=== PATIENT | male | born 2000 | race Caucasian/White ===

== ENCOUNTER 2025-06-16 20:08 | Outpatient (OUT) | payer OTHER, SELFPAY ==
--- OUTSIDE RECORDS SUMMARY | 2025-05-14 11:45 | XMS_ITS ---
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 * Medical History: Objective: * Vitals: Assessment: Plan: * Treatment: * Billing Information: * Visit Code: * Procedure Codes: * Electronic signature of Nate Hendrickson MD on 06/16/2025 at 08:11 PM EDT Sign off status: Pending * Provider: Luis Hendrickson MD Date: 05/14/2025 Generated for Printi lucy/Geronimo/eTransmitting on: 06/16/2025 08:11 PM EDT
--- OUTSIDE RECORDS SUMMARY | 2025-06-16 20:11 | XMS_ITS | Clinical Summary ---
Author Organization [employer] [facility] Address [id number] [place] [address] Care Team Providers Care Regional Education Coordinator Name Role Phone Unavailable Primary Care Provider Unavailabl e Allergies No known active allergies Medications No known medications Social History Tobacco Use Types Packs/Day Years Used Date Smoking Tobacco: Never Assessed Hunger Screening Answer Date Recorded Within the past 12 months we worried whether our food would run out before we got money to buy more. Sometimes True 025 Within the past 12 months th e food we bought just didn't last and we didn't have money to get more. Sometimes True 12/07/2024 Sex and Gender Information Value Date Recorded Sex Assigned at Not on file Legal Sex Male 2:09 PM EST Gender Identity Not on file Sexual Orientation Not on file Last Filed Vital Signs Vital Sign Reading Time Taken Comments Blood Pressure 174/95 12/07/2024 5:29 PM EST Pulse 90 12/07/2024 2:32 PM EST Temperature 37.2 C (99 F) 12/07/2024 2:32 PM EST Respiratory Rate 18 12/07/2024 5:29 PM EST Oxygen Saturation 98% 12/07/2024 2:32 PM EST Inhaled Oxygen Concentration - - Weight 117.9 kg (260 lb) 12/07/2024 2:32 PM EST Height 180.3 cm (5' 11 ) 12/07/2024 2:32 PM EST Body Mass Index 36.26 12/07/2024 2:32 PM EST Plan of Treatment Health Maintenance Due Date Last Done Comments Depression Screening 2014 Tobacco Screening 2014 Adult BMI Follow Up Plan 2020 DTaP,Tdap and Td Vaccines (1 - Tdap) 2021 Influenza Vaccine 06/30/2025 Adult BMI Screening 12/07/2025 12/07/2024 Medical Devices Not on file Insurance [employer]
--- OUTSIDE RECORDS SUMMARY | 2025-06-16 20:11 | XMS_ITS | Patient Health Record ---
Author Organization [facility] Address [address] [place], [place] [id number] Care Team Providers Care Pot Maker Name Role Phone Courtney Hendrickson Primary Care Provider Hayes Byrd Unavailable [phone] Allergies No Known Allergies Reason For Referral Reason stop bang score of 6 Diagnosis 1 Suspected sleep apne a (R29.818) Referral Organization Main Referring Provider First Name Hayes Referring Provider Last Name Rochelle Referring Provider Speciality Physician Back Up Scan Coordinator Referred Provider [facility] Referred Provider Specialty Sleep Medici ne General Notes Nazanin Peoples 04/2025 10:40:57 AM >{ {TOFIRSTNAME}} This is [facility] following up on an outstanding referral that was ordered by your provider. Please call our office at , so we can _update our records. ceb, Referral F/U faxed to [facility] Referral Priority Routine Reason Z56.0 Unemployment Diagnosis 1 Unemployment (Z56.0) Referral Organization Main Referring Provider First Name Hayes Referring Provider Last Name Yohanad Referring Provider Speciality Physician Back Up Scan Coordinator Referred Provider PRAPARFabiola Referred Provider Specialty Public Healt h or Welfare Agencies General Notes Cha Dejesus 04/30 07:32:38 AM >Community resources sent to the patient. Referral Priority Urgent Social History Tobacco Use: Social History Observation Description Date Details (start date - stop date) Never Smoker NA - NA Sex Assigned At : Social History Observation Description Sex Assigned At Male CAGE-AID Questionnaire (2018 Edition) Question Answer Notes Have you ever felt that you ought to cut down on your drinking or drug use? No Have people annoyed you by criticizing your drin miles or drug use? No Have you ever felt bad or guilty about your drin miles or drug use? No Have you ever had a drink or used drugs first thing in the morning to steady your nerves or to get rid of a hangover? No CAGE-AID Score 0 Interpretation Negative PRAPARE Question Answer Notes What is your current housing situation? I have h ousing Are you worried about losing your housing? No What is the highest level of school that you have finished? High school diploma or GED What is your current work situation? Unemployed and seeking work In the past year, have you o r any family members you live with been unable to get any of the following when it was really needed? Check all that apply I do not have problems meeting my needs Has lack of transportation k ept you from medical appointments, meetings, work or from getting things needed for daily living? No How often do you see or talk to people that you care about and feel close to? (For example: talking to friends on the phone, visiting friends or family, going to buddhism or club meetings) More than 5 times a week How stressed are you? Stress is when someone feels tense, nervous, anxious, or can't sleep at night because their mind is troubled A little bit In the past year have you sp ent more than 2 nights in a row in a snf, care home, senior living center, or juvenile correctional facility? No Are you a refugee? No What country are you from? [place] Do you feel physically and e motionally safe where you currently live? Yes In the past year, have you b een afraid of your partner or ex-partner? No PRAPARE Score: 5 Tobacco Control (Standard) Question Answer Notes Tobacco use: Nonsmoker Additional Findings: Tobacco non-user Current no nsmoker Problems Problem Type SNOMED Code ICD Code Onset Dates Problem Status W/U Status Risk Notes Problem BMI 40.0-44.9, adult (Z68.41) Active confirmed Vital Signs Heart Rate 85 /min 05/14/2025 denies pain. Jocelynn Roman 05/14/2025 03:33:36 PM EDT > Temperature 98.6 degrees Fahrenheit 05/14/2025 speedy es pain. Jocelynn Tobin 05/14/2025 03:33:36 PM EDT > Respiratory Rate 16 /min 05/14/2025 denies pain . Jocelynn Tobin 05/14/2025 03:33:36 PM EDT > Height-cm 177.8 cm 05/14/2025 denies pain. Md Jocelynn beasley 05/14/2025 03:33:36 PM EDT > Oximetry 98 % 05/14/2025 denies pain. Md Jocelynn beasley 05/14/2025 03:33:36 PM EDT > Blood pressure diastolic 84 mm Hg 05/14/2025 den ies pain. Jocelynn Tobin 05/14/2025 03:33:36 PM EDT > Weight-kg 139.35 kg 05/14/2025 denies pain. Md Jocelynn beasley 05/14/2025 03:33:36 PM EDT > Height 70 in 05/14/2025 denies pain. Md Jocelynn beasley 05/14/2025 03:33:36 PM EDT > Blood pressure systolic 117 mm Hg 05/14/2025 speedy es pain. Jocelynn Tobin 05/14/2025 03:33:36 PM EDT > Weight 307.2 lbs 05/14/2025 denies pain. Md Jocelynn beasley 05/14/2025 03:33:36 PM EDT > BMI 44.07 kg/m2 05/14/2025 denies pain. Md Jocelynn beasley 05/14/2025 03:33:36 PM EDT > Encounters Encounter Location Date Provider Diagnosis Main [address] [place], [place] [id number] 05/14/2025 Hayes Byrd Suspected sleep apne a R29.818 ; Unspecified nonsuppurative otitis media, unspecified ear H65.90 ; BMI 40.0-44.9, adult Z68.41 ; Unspecified perforation of tympanic membrane, unspecified ear H72.90 ; Dietary counseling Z71.3 ; Exercise counseling Z71.82 and Unemployment, unspecified Z56.0 Assessments Encounter Date Diagnosis (ICD Code) Assessment Notes Treatment Notes Treatment Clinical Notes Section Notes 05/14/2025 Unspecified nonsuppurative otitis media, unspecified ear (ICD-10 - H65.90) Pt ear drum is healing no sings of infection if persistent will refer to ENT pt verbalized understanding 05/14/2025 Suspected sleep apnea (ICD-10 - R29.818) stop bang score of 6 refer to sleep medecine 05/14/2025 BMI 40.0-44.9, adult (ICD-10 - Z68.41) 05/14/2025 Unspecified perforation of tympanic membrane, unspecified ear (ICD-10 - H72.90) 05/14/2025 Dietary counseling (ICD-10 - Z71.3) 05/14/2025 Exercise counseling (ICD-10 - Z71.82) 05/14/2025 Unemployment, unspecified (ICD-10 - Z56.0) Plan Of Treatment No Information Insurance Providers Payer Name Payer Address Payer Phone Subscriber Number Group Number Insured Name Patient Relationship to Insured Coverage Start Date Coverage End Date [facility] [address] [place], [place] [id number] Joe Travis Self - patient is the insured 2 Medicaid CFC after [facility] [address] [place] [address] [id number] Joe Travis Self - patient is the insured 2
== END 2025-06-16 20:09 | disposition home or self-care (01) ==
DX: G47.33 Obstructive sleep apnea (adult) (pediatric) (principal)
CPT/HCPCS: 95810

== ENCOUNTER 2025-07-01 20:05 | Outpatient (OUT) | payer OTHER, SELFPAY | END 2025-07-01 20:06 | disposition home or self-care (01) | DX: G47.33 Obstructive sleep apnea (adult) (pediatric) (principal) | CPT/HCPCS: 95811 ==